=== PATIENT | female | born 1995 | race Two or more races ===

== ENCOUNTER 2016-11-09 20:36 | Emergency (ER) | payer OTHER ==
[~2016-11-09] VITALS: Ht 170.2 cm; Wt 94.5 kg
[2016-11-09 20:42] VITALS: Ht 170.2 cm; Wt 94.5 kg
[2016-11-09] MEDS ORDERED: HYDROCODONE/APAP (5/325) TAB PO ONE (23:00)
--- NOTE | 2016-11-09 23:02 | ERD ---
ER Documentation Chief Complaint Date/Time DATE: 11/09/16 TIME: 22:53 Chief Complaint left knee pain x 1 day, denies injury HPI 21-year-old female presents here in emergency department for complaint of left knee pain that started today. Patient has been having it on and off before, it got worse today. Patient has been standing for long periods of time today. Patient is unable to fully bend the left knee because of the pain. Patient describes the pain as throbbing pain, 6/10 scale, is worse with movement. Patient did not take medications of symptoms. Patient denies any numbness or tingling. Patient denies any fever or chills. Patient denies any deformity. ROS All systems reviewed and are negative except as per history of present illness. Medications Home Meds Reported Medications [none] Unknown Strength No Conflict Check 11/09/16 Allergies Allergies: Coded Allergies: No Known Allergy (Unverified , 11/09/16) PMhx/Soc Medical and Surgical Hx: pt denies Medical Hx, pt denies Surgical Hx History of Surgery: No Anesthesia Reaction: No Hx Neurological Disorder: No Hx Respiratory Disorders: No Hx Cardiac Disorders: No Hx Psychiatric Problems: No Hx Miscellaneous Medical Probl: No Hx Alcohol Use: No Hx Substance Use: No Hx Tobacco Use: No FmHx Family History: No coronary disease, No diabetes, No other Physical Exam Vitals Vital Signs Date Time Temp Pulse Resp B/P Pulse Ox O2 Delivery O2 Flow Rate FiO2 11/09/16 20:42 98.2 98 20 122/68 98 Physical Exam GENERAL: The patient is well developed and appropriate for usual state of health, in no apparent distress. CHEST: Clear to auscultation bilaterally. There are no rales, wheezes or rhonchi. HEART: Regular rate and rhythm. No murmurs, clicks, rubs or gallops. No S3 or S4. ABDOMEN: Soft, nontender and nondistended. Good bowel sounds. No rebound or guarding. No gross peritonitis. No gross organomegaly or masses. No Sabillon sign or McBurney point tenderness. BACK: No midline or flank tenderness. EXTREMITIES: Tenderness on palpation on the posterior aspect of the left knee, no erythema noted, unable to do full range of motion because of the pain. No swelling noted. Equal pulses bilaterally. There is no peripheral clubbing, cyanosis or edema. No focal swelling or erythema. Full range of motion. Grossly neurovascularly intact. NEURO: Alert and oriented. Cranial nerves 2-12 intact. Motor strength in all 4 extremities with 5/5 strength. Sensation grossly intact. Normal speech and gait. SKIN: There is no apparent rash or petechia. The skin is warm and dry. HEMATOLOGIC AND LYMPHATIC: There is no evidence of excessive bruising or lymphedema. No gross cervical, axillary, or inguinal lymphadenopathy. Results 24 hrs Current Medications Medications (Trade) Dose Ordered Sig/Lianet Route PRN Reason Start Time Stop Time Status Last Admin Dose Admin Acetaminophen/ Hydrocodone Bitart ([place] (5/325)) 1 tab ONCE ONCE PO 11/09/16 23:00 11/09/16 23:01 DC Patient was given medication for pain here in emergency department, after treatment, patient verbalized feeling much better. Patient's pain is improved. X-rays of the knee, knee immobilizer, and crutches was ordered here in emergency department, upon trying to call the patient, is unable to be seen. Patient eloped, tried to contact the patient, but unable to be reached . Procedures/MDM Medical Decision Making: Patient's pain is most likely consistent with a contusion or a sprain. There is no suspicion for neurovascular compromise. Patient has intact sensation and circulation of the affected extremity. There is low suspicion for septic arthritis. Patient does not have any fever. -rays were not able to be taken. Disposition: eloped. stable Departure Diagnosis: Primary Impression: Knee pain, left Chronicity: acute Qualified Code: M25.562 - Acute pain of left knee Condition: Stable UMANG JO NP Nov 09, 2016 23:02 UMANG JO NP Nov 09, 2016 23:02
== END 2016-11-10 00:15 | disposition left against medical advice (07) ==
LOC: FTE 20:36
DX: M25.562 Pain in left knee (principal)
CPT/HCPCS: Z7502; Z7610; 99282